=== PATIENT | female | born 1965 | race Caucasian/White ===

== ENCOUNTER 2017-07-05 05:32 | Day surgery (SDC) | payer BC ==
[~2017-07-05] VITALS: Ht 175.3 cm; Wt 78.2 kg
[2017-07-05] VITALS (10 sets, daily range): BP systolic 86–137; BP diastolic 57–74; PULSE 50–76; TEMP 97.3–98
[2017-07-05] MEDS ORDERED: CIPRO 250MG TA250 MG PO (06:39)
[2017-07-05] MEDS ORDERED: MULTI VITAMINS1 TAB PO (06:40)
[2017-07-05] MEDS ORDERED: ZESTRIL 10MG10 MG PO (06:40)
[2017-07-05] MEDS ORDERED: PERCOCET 325 MG1 TA2 PO (07:28)
[2017-07-05] MEDS ORDERED: MOTRIN 800800 MG/TAB PO (07:28)
== END 2017-07-05 16:00 | disposition home or self-care (01) ==
LOC: SDCO 05:32 → OB 10:20 → SDCO 16:00
DX: N81.4 Uterovaginal prolapse, unspecified (principal); N95.0 Postmenopausal bleeding; N72 Inflammatory disease of cervix uteri; N88.8 Other specified noninflammatory disorders of cervix uteri; D25.1 Intramural leiomyoma of uterus; D25.0 Submucous leiomyoma of uterus; N39.0 Urinary tract infection, site not specified; I10 Essential (primary) hypertension; Z88.1 Allergy status to other antibiotic agents; Z88.0 Allergy status to penicillin
CPT/HCPCS: OP; A4314; C2631; J0690; J1100; J1885; J2405; J2704; J2710; J2765; J3010; J7120